=== PATIENT | female | born 1950 | race Asian ===

== ENCOUNTER 2016-10-24 12:15 | Inpatient (IN) | payer MEDICAID, MEDICARE ==
[~2016-10-24] VITALS: Ht 139.7 cm; Wt 49.0 kg
[~2016-10-24 12:15] MED LIST: ALEN70SO PO; AMLO-27 PO; ASPI81CT33 PO; ATEN25TA2 PO; CALC-1044 PO; CIPR500T4 PO; ISOS30TA PO; LOVA10TA27 PO; TIMO5SOL OP
[2016-10-24 13:02] VITALS: BP 94/54
--- NOTE | 2016-10-24 13:29 | NUR ---
PATIENT PRESENTS TO ED WITH ALOC . PT STATES SHE WAS UNABLE TO SLEEP LAST NIGHT AND HAD TO FAST FOR BLOODDRAW THIS MORNING. C/O DIZZINESS AND VOMITED. DAUGHTER STATES SHE LOST CONSCIOUSNESS FOR APPROXIMATELY 5 MINUTES. DENIES N/V/D; SKIN IS PINK/WARM/DRY; AAOX4 WITH EVEN AND STEADY GAIT; LUNGS CLEAR BL; HR EVEN AND REGULAR; PT DENIES ANY FEVER, CP, SOB, OR COUGH AT THIS TIME; PATIENT STATES PAIN OF 0/10 AT THIS TIME; VSS; PATIENT POSITIONED FOR COMFORT; HOB ELEVATED; BEDRAILS UP X2; BED DOWN. ER MD MADE AWARE OF PT STATUS.
--- NOTE | 2016-10-24 13:42 | NUR ---
DR. MERRITT PRESENT AT BEDSIDE.
[2016-10-24] MEDS ORDERED: NACL 0.9% 1,000 ML IV ONE ×2 (13:45→15:30)
[2016-10-24 14:24] LABS: BASOPHILS # (AUTO) 0.1 K/uL (0.00-0.22); BASOPHILS % (AUTO) 1.5 % (0.0-2.0); EOSINOPHILS # (AUTO) 0.3 K/uL (0-0.4); HEMATOCRIT 37.3 % (36-48); HEMOGLOBIN 12.4 g/dL (12.0-16.0); LYMPHOCYTES # (AUTO) 1.7 K/uL (2.5-16.5); LYMPHOCYTES % (AUTO) 20.1 % (20.5-51.1); MEAN CORPUSCULAR HEMOGLOBIN 31 pg (27-31); MEAN CORPUSCULAR HGB CONC 33 g/dL (33-37); MEAN CORPUSCULAR VOLUME 92 fL (80-94); MONOCYTES # (AUTO) 0.4 K/uL (0.8-1.0); MONOCYTES % (AUTO) 4.5 % (1.7-9.3); NEUTROPHILS # (AUTO) 6.1 K/uL (1.8-7.7); NEUTROPHILS % (AUTO) 70.9 % (42.2-75.2); PLATELET COUNT (AUTO) 233 K/uL (140-450); RED BLOOD CELL COUNT(AUTO) 4.05 MIL/uL (4.20-5.40); RED CELL DISTRIBUTION WIDTH 12.2 % (11.6-13.7); WHITE BLOOD COUNT (AUTO) 8.6 K/uL (4.8-10.8)
--- NOTE | 2016-10-24 14:34 | NUR ---
PT TO CT.
[2016-10-24 14:40] LABS: ANION GAP 11.5 (8-16); CALCIUM 8.8 mg/dL (8.5-10.1); CARBON DIOXIDE 28.3 mmol/L (21-32); CREATININE 0.7 mg/dL (0.6-1.3)
[2016-10-24 14:44] LABS: POTASSIUM 3.8 mmol/L (3.5-5.1)
[2016-10-24 14:45] LABS: ALBUMIN 3.8 g/dL (3.4-5.0); TOTAL BILIRUBIN 0.4 mg/dL (0.0-1.0); TOTAL PROTEIN, SERUM 8.2 g/dL (6.4-8.2)
--- NOTE | 2016-10-24 14:45 | NUR ---
PT BACK FROM CT. PT IN BED AND PLACED BACK ON MONITOR. DAUGHTER PRESENT AT BEDSIDE.
[2016-10-24 14:47] LABS: INR 1.1 (0.8-1.2); PARTIAL THROMBOPLASTIN TIME 21.2 secs (22-35.6)
[2016-10-24 14:51] LABS: MAGNESIUM 2.2 mg/dL (1.8-2.4)
[2016-10-24] MEDS ORDERED: MORPHINE SULFATE 2 MG/ML SYR IVP PRN (15:30)
[2016-10-24] MEDS ORDERED: DOCUSATE SODIUM 100 MG GELCAP PO PRN (15:30)
[2016-10-24] MEDS ORDERED: ONDANSETRON 4 MG/2 ML VIAL IVP PRN (15:30)
[2016-10-24] MEDS ORDERED: HYDROcodone/APAP 5/325 MG 1 TAB TAB PO PRN (15:30)
[2016-10-24] MEDS ORDERED: ACETAMINOPHEN 325 MG TAB PO PRN (15:30)
[2016-10-24] MEDS ORDERED: MECLIZINE 25 MG TAB PO PRN (15:35)
--- NOTE | 2016-10-24 15:37 | NUR ---
DR. MERRITT PRESENT AT BEDSIDE.
--- NOTE | 2016-10-24 16:02 | NUR ---
ULTRASOUND TECHS PRESENT AT PT BEDSIDE.
--- NOTE | 2016-10-24 16:13 | NUR ---
DR. RAMIREZ PRESENT AT BEDSIDE SPEAKING WITH PT'S DAUGHTER.
[2016-10-24] MEDS ORDERED: ASPIRIN 81 MG TAB.CHEW PO SCH (16:14)
--- NOTE | 2016-10-24 16:20 | NUR ---
RECEIVED REPORT FROM AROLDO PHAN NURSE. JUST FINISHED UP CAROTID US. WILL BE COMING UP IN ABOUT 30 MIN. WILL GET ROOM READY.
--- NOTE | 2016-10-24 16:21 | NUR ---
HANDOFF REPORT GIVEN TO LETICIA SOMMER. PT IS TO BE TRANSFERRED TO [facility]B Addendum: 10/24/16 at 1709 by [email or web address] CORRECTION: PT WILL BE TRANSFERRED TO [facility]B.
[2016-10-24 17:00] LABS: BILIRUBIN,DIRECT 0.1 mg/dL (0.0-0.3); TOTAL BILIRUBIN 0.3 mg/dL (0.0-1.0)
--- NOTE | 2016-10-24 17:00 | NUR ---
PT ARRIVED ON UNIT WITH ER NURSE AND 2 GAS ENGINE PERFORMANCE ENGINEER. WE ASSIST PT FROM ONE GURNEY TO ANOTHER. PT IS ALERT AND ORIENTED AND AMBULATORY. NOTED PT WITH NC O2 2L, IV ON R HAND 22G. FLUIDS ALMOST DONE. WILL HANG ANOTHER. PT IS WITH HER DAUGHTER, EMMA. SHE DID THE TRANSLATING. PT IS RELATIVELY HEALTHY 66 Y/O ETHIOPIAN FEMALE. WAS HAVING BREAKFAST WITH HER FAMILY AT [facility] [employer]. C/O FEELING TIRED AND FAINTED. SHE DID NOT HAVE A FALL, SON IN LAW WAS THERE TO ASSIST. PT IS FINE NOW. NO SIGNS OF DISTRESS. NO COMPLAINTS OF RICHTER, DIZZINESS, LIGHT HEADEDNESS. NO PAIN. C/O OF BEING HUNGRY. SHE HADN'T EATEN ALL DAY. SKIN IS INTACT. PLACE A NEW ID BAND, FALL RISK BAND, AND AN ALLERGY BAND. SHE STATES SHE IS ALLERGIC TO MORPHINE. MAKES HER CRAZY AND "LOOPY". WILL CONTINUE TO MONITOR PT.
[2016-10-24 17:01] LABS: ALBUMIN 3.9 g/dL (3.4-5.0)
--- NOTE | 2016-10-24 17:09 | NUR ---
PT TRANSFERRED TO [facility] 121B WITH NO ISSUES. DAUGHTER PRESENT AT BEDSIDE.
[2016-10-24 17:20] LABS: MAGNESIUM 2.2 mg/dL (1.8-2.4)
[2016-10-24 17:35] LABS: CHOL/HDL RATIO 5.1 (1-4.5)
[2016-10-24] MEDS ORDERED: AZELASTINE 0.05% BOTH EYES (17:55)
[2016-10-24 18:03] VITALS: BP 108/57
--- NOTE | 2016-10-24 18:30 | NUR ---
DAUGHTER DECIDED TO GO HOME. PT ATE DINNER AND IS COMFORTABLE FOR THE NIGHT. WILL BE BACK TOMORROW, MILL TURNER PER DAUGHTER. ADMINISTERED NEW NS. PT HAS NO COMPLAINTS. NO SIGNS OF DISTRESS. WILL CONTINUE TO MONITOR PT.
[2016-10-24 19:02] LABS: FREE T4 (FREE THYROXINE) 1.05 ng/dL (0.76-1.46); THYROID STIMULATING HORMONE 1.18 uIU/mL (0.34-3.76)
--- NOTE | 2016-10-24 19:15 | NUR ---
ENDORSED PT TO THE REEL ASSEMBLER NURSE AT BEDSIDE FOR CONTINUITY OF CARE. PT IS IN STABLE CONDITION. PT IS RESTING COMFORTABLY.
--- NOTE | 2016-10-24 19:30 | NUR ---
RECEIVED REPORT FROM DAY RN AT BEDSIDE, PATIENT IS IN STABLE CONDITION RESTING IN BED ON ROOM AIR. ASSISTED PATIENT UP TO RESTROOM. NO SOB OR SIGN OF DISTRESS AT THIS TIME. AAOX4. PATIENT HAS IV TO RIGHT HAND PATENT AND INTACT. SKIN INTACT, PATIENT DENIES PAIN OR DIZZINESS. SCDS ON, DISCUSSED PLAN OF CARE WITH PATIENT, PATIENT VERBALIZED UNDERSTANDING, SAFETY MEASURES CHECKED, CALL LIGHT WITHIN REACH. WILL CONTINUE TO MONITOR. FAMILY AT BEDSIDE.
[2016-10-24 20:00] VITALS: BP 122/68
[2016-10-24] MEDS: ATENOLOL 25 MG TAB PO SCH (20:44)
[2016-10-24] MEDS: ATORVASTATIN 20 MG TAB PO SCH (20:44)
[2016-10-24] MEDS: TIMOLOL OP 0.5% 5 ML BTL OP SCH (20:47)
--- NOTE | 2016-10-24 20:48 | NUR ---
PM MEDS ADMINISTERED, PATIENT TOLERATED WELL, CALL LIGHT WITHIN REACH. WILL CONTINUE TO MONITOR.
--- NOTE | 2016-10-24 22:30 | NUR ---
PATIENT SLEEPING, NO SOB OR SIGN OF DISTRESS, CALL LIGHT WITHIN REACH. WILL CONTINUE TO MONITOR
[2016-10-24 23:04] LABS: APPEARANCE,URINE CLEAR (CLEAR); BILIRUBIN,URINE NEGATIVE (NEGATIVE); BLOOD, URINE TRACE-L (NEGATIVE); COLOR,URINE YELLOW (YELLOW); LEUKOCYTE ESTERASE ,URINE NEGATIVE (NEGATIVE); NITRITE, URINE NEGATIVE (NEGATIVE); PROTEIN,URINE NEGATIVE (NEGATIVE); UGLUCOSE NEGATIVE (NEGATIVE); UROBILINOGEN,URINE 0.2 EU/dL (0.2 - 1)
[2016-10-24 23:21] LABS: BACTERIA,URINE RARE /HPF (None Seen); RBC,URINE 0-3 /HPF (0-5); SQUAMOUS EPITHELIAL CELL,UR 0-3 /LPF (0-3 (FEW)); WBC,URINE 0-3 /HPF (0-5)
[2016-10-24 23:32] LABS: AMPHETAMINE, URINE NEG. ng/ml (NEG <=1000); BARBITURATE, URINE NEG. ng/ml (NEG <=200); BENZODIAZEPINE, URINE NEG. ng/mL (NEG <=200); CANNABINOID, URINE NEG. ng/mL (NEG <=50); COCAINE, URINE NEG. ng/mL (NEG <=300); OPIATE, URINE NEG. ng/mL (NEG <=2000); PHENCYCLIDINE SCREEN,URINE NEG. ng/mL (NEG <=25)
[2016-10-25] VITALS: BP 108/59
--- NOTE | 2016-10-25 | NUR ---
VITAL SIGNS STABLE, NO SOB OR SIGN OF DISTRESS AT THIS TIME, PATIENT RESTING IN BED, CALL LIGHT WITHIN REACH. WILL CONTINUE TO MONITOR.
--- NOTE | 2016-10-25 01:32 | NUR ---
PATIENT SLEEPING COMFORTABLE IN BED, NO SOB OR SIGN OF DISTRESS AT THIS TIME, CALL LIGHT WITHIN REACH. WILL CONTINUE TO MONITOR.
--- NOTE | 2016-10-25 02:15 | NUR ---
PATIENT SLEEPING, NO SOB OR SIGN OF DISTRESS AT THIS TIME, CALL LIGHT WITHIN REACH, WILL CONTINUE TO MONITOR.
[2016-10-25 04:00] VITALS: BP 100/57
--- NOTE | 2016-10-25 04:08 | NUR ---
VITAL SIGNS STABLE, NO SOB OR SIGN OF DISTRESS, CALL LIGHT WITHIN REACH. WILL CONTINUE TO MONITOR.
[2016-10-25] MEDS: PANTOPRAZOLE 40 MG TABEC PO SCH (05:34)
[2016-10-25 06:12] LABS: BASOPHILS % (AUTO) 0.6 % (0.0-2.0); EOSINOPHILS # (AUTO) 0.3 K/uL (0-0.4); EOSINOPHILS % (AUTO) 4.7 % (0.0-4.0); HEMATOCRIT 35.3 % (36-48); HEMOGLOBIN 11.9 g/dL (12.0-16.0); LYMPHOCYTES # (AUTO) 2.1 K/uL (2.5-16.5); LYMPHOCYTES % (AUTO) 31.3 % (20.5-51.1); MEAN CORPUSCULAR HEMOGLOBIN 31 pg (27-31); MEAN CORPUSCULAR HGB CONC 34 g/dL (33-37); MEAN CORPUSCULAR VOLUME 92 fL (80-94); MONOCYTES # (AUTO) 0.4 K/uL (0.8-1.0); MONOCYTES % (AUTO) 6.7 % (1.7-9.3); NEUTROPHILS # (AUTO) 3.9 K/uL (1.8-7.7); NEUTROPHILS % (AUTO) 56.7 % (42.2-75.2); PLATELET COUNT (AUTO) 247 K/uL (140-450); RED BLOOD CELL COUNT(AUTO) 3.85 MIL/uL (4.20-5.40); RED CELL DISTRIBUTION WIDTH 11.9 % (11.6-13.7); WHITE BLOOD COUNT (AUTO) 6.7 K/uL (4.8-10.8)
[2016-10-25 06:33] LABS: ANION GAP 11.5 (8-16); CALCIUM 8.2 mg/dL (8.5-10.1); CARBON DIOXIDE 27.9 mmol/L (21-32); CREATININE 0.6 mg/dL (0.6-1.3); POTASSIUM 3.4 mmol/L (3.5-5.1)
[2016-10-25 06:44] LABS: MAGNESIUM 1.9 mg/dL (1.8-2.4); PHOSPHORUS 3.5 mg/dL (2.5-4.9)
--- NOTE | 2016-10-25 07:22 | NUR ---
ENDORSED PATIENT TO DAY RN AT BEDSIDE, PATIENT IN STABLE CONDITION.
--- NOTE | 2016-10-25 07:23 | NUR ---
RECEIVED REPORT FROM NIGHT RN. PT SEEN AT BEDSIDE WITH DAUGHTER. PT IS AAOX4 ON ROOM AIR WITH NO S/S DISTRESS OR SOB AT THIS TIME. PT HAS IV ON RIGHT HAND 22G RUNNING IVF AT THIS TIME. NO S/S COMPLICATIONS FROM IV AT THIS TIME. PT IS AMBULATORY. SKIN IS WARM, DRY, AND INTACT. NO C/O PAIN AT THIS TIME. SAFETY MEASURES CHECKED, CALL LIGHT LEFT AT BEDSIDE. WILL CONTINUE TO MONITOR.
[2016-10-25 08:00] VITALS: BP 102/53
--- NOTE | 2016-10-25 08:07 | NUR ---
PATIENT HAS BEEN SCREENED AND CATEGORIZED MODERATE NUTRITION RISK. PATIENT WILL BE SEEN WITHIN 3-5 DAYS OF ADMISSION. 10/27/16-10/29/[address]
[2016-10-25] MEDS ORDERED: POTASSIUM CHLORIDE 10 MEQ TABER PO SCH (08:30)
--- NOTE | 2016-10-25 08:39 | NUR ---
DR. XAVIER AT BEDSIDE ASSESSING AND TALKING TO PATIENT. UPDATED MD ON PATIENT CONDITION. WILL CONTINUE TO MONITOR.
[2016-10-25] MEDS: TIMOLOL OP 0.5% 5 ML BTL OP SCH ×2 (08:45→21:25)
[2016-10-25] MEDS: ASPIRIN 81 MG TAB.CHEW PO SCH (08:45)
[2016-10-25] MEDS: CALCIUM CARB/VIT-D 500 MG/200 IU 1 TAB PO SCH ×2 (08:45→21:24)
[2016-10-25] MEDS ORDERED: CALCIUM CARB/VIT-D 500 MG/200 IU 1 TAB PO SCH (09:00)
[2016-10-25] MEDS: amLODIPine 5 MG TAB PO SCH (09:00)
--- NOTE | 2016-10-25 10:00 | NUR ---
PT REQUESTING FOR BLANKET. BLANKET OFFERED.
--- NOTE | 2016-10-25 11:38 | NUR ---
CM NOTE SPOKE WITH TIM Newsle [facility] PH# [phone] AND SHE SAID REVIEWS SHOULD GO TO [facility]. SPOKE WITH RAFAEL OF [facility] PH# [phone] EXT [phone] WHO SAID THAT REVIEWS SHOULD GO TO [facility]. SENT INITIAL REVIEW TO [facility] FAX# [phone] PH# [phone] [facility] EXT [phone]
[2016-10-25 12:00] VITALS: BP 95/52
--- NOTE | 2016-10-25 12:00 | NUR ---
PT EATING LUNCH. NO S/S DISTRESS OR SOB. WILL CONTINUE TO MONITOR.
[2016-10-25 16:00] VITALS: BP 123/62
--- NOTE | 2016-10-25 16:00 | NUR ---
PT AT BEDSIDE TALKING ON THE PHONE. NO S/S DISTRESS OR SOB. PT STATES SHE DOES NOT NEED AT THIS TIME. WILL CONTINUE TO MONITOR.
--- NOTE | 2016-10-25 19:25 | NUR ---
RECEIVED REPORT FROM LETICIA SIMMS. INITIAL ASSESSMENT COMPLETED. PT AAOX4. PT'S SKIN IS INTACT. PT HAS IV TO RIGHT HAND G 22; ASYMPTOMATIC, PATENT AND INTACT. ORIENTED PT AND DAUGHTER EMMA TO ROOM AND SURROUNDINGS AND USE OF CALL LIGHT. EXPLAINED PLAN OF CARE TO PT AND DAUGHTER AND THEY VERBALIZE UNDERSTANDING. PT HAS SCDS ON. SAFETY/FALL RISK PRECAUTIONS IN PLACE. WILL CONTINUE TO MONITOR PT.
--- NOTE | 2016-10-25 19:30 | NUR ---
REPORT GIVEN TO NIGHT RN.
[2016-10-25 20:00] VITALS: BP 128/76
[2016-10-25] MEDS: ATORVASTATIN 20 MG TAB PO SCH (21:23)
[2016-10-25] MEDS: ATENOLOL 25 MG TAB PO SCH (21:24)
--- NOTE | 2016-10-25 21:28 | NUR ---
PT TOLERATED 2100 MEDS WELL. DAUGHTER AT BEDSIDE. CALL LIGHT WITHIN REACH.
--- NOTE | 2016-10-25 23:25 | NUR ---
PT USING HER PHONE, NO SIGNS OF DISTRESS NOTED. WILL CONTINUE TO MONITOR PT.
[2016-10-26] VITALS: BP 132/78
--- NOTE | 2016-10-26 01:11 | NUR ---
PT SLEEPING AT THIS TIME, NO SIGNS OF DISTRESS NOTED, CALL LIGHT WITHIN REACH.
--- NOTE | 2016-10-26 03:20 | NUR ---
CHECKED PT'S VS. VS STABLE, WILL CONTINUE TO MONITOR PT.
[2016-10-26 04:00] VITALS: BP 108/51
--- NOTE | 2016-10-26 04:30 | NUR ---
PLASTERER FOREMAN AT BEDSIDE DRAWING MORNING LABS.
[2016-10-26 06:24] LABS: BASOPHILS # (AUTO) 0.1 K/uL (0.00-0.22); BASOPHILS % (AUTO) 0.8 % (0.0-2.0); EOSINOPHILS # (AUTO) 0.3 K/uL (0-0.4); EOSINOPHILS % (AUTO) 4.4 % (0.0-4.0); HEMATOCRIT 36.5 % (36-48); HEMOGLOBIN 12.5 g/dL (12.0-16.0); LYMPHOCYTES # (AUTO) 2.4 K/uL (2.5-16.5); LYMPHOCYTES % (AUTO) 36.3 % (20.5-51.1); MEAN CORPUSCULAR HEMOGLOBIN 31 pg (27-31); MEAN CORPUSCULAR HGB CONC 34 g/dL (33-37); MEAN CORPUSCULAR VOLUME 91 fL (80-94); MONOCYTES # (AUTO) 0.5 K/uL (0.8-1.0); MONOCYTES % (AUTO) 7.3 % (1.7-9.3); NEUTROPHILS # (AUTO) 3.2 K/uL (1.8-7.7); NEUTROPHILS % (AUTO) 51.2 % (42.2-75.2); PLATELET COUNT (AUTO) 233 K/uL (140-450); RED BLOOD CELL COUNT(AUTO) 3.99 MIL/uL (4.20-5.40); RED CELL DISTRIBUTION WIDTH 11.8 % (11.6-13.7); WHITE BLOOD COUNT (AUTO) 6.5 K/uL (4.8-10.8)
--- NOTE | 2016-10-26 06:30 | NUR ---
PT AMBULATING TO THE RESTROOM WITH STEADY GAIT. WILL CONTINUE TO MONITOR PT.
[2016-10-26] MEDS: PANTOPRAZOLE 40 MG TABEC PO SCH (06:33)
--- NOTE | 2016-10-26 06:52 | NUR ---
[place] IN TO VISIT PT. CALL LIGHT WITHIN REACH.
[2016-10-26 06:53] LABS: ANION GAP 11.7 (8-16); CALCIUM 8.5 mg/dL (8.5-10.1); CARBON DIOXIDE 26.9 mmol/L (21-32); CREATININE 0.6 mg/dL (0.6-1.3); POTASSIUM 3.6 mmol/L (3.5-5.1)
[2016-10-26 07:03] LABS: MAGNESIUM 2.2 mg/dL (1.8-2.4); PHOSPHORUS 3.7 mg/dL (2.5-4.9)
--- NOTE | 2016-10-26 07:30 | NUR ---
ENDORSED PLAN OF CARE TO LETICIA HERMAN PT IN STABLE CONDITION.
[2016-10-26 08:00] VITALS: BP 111/61
--- NOTE | 2016-10-26 08:00 | NUR ---
RECEIVED REPORT FROM MARK CHARGE NURSE FOR CONTINUITY OF CARE. PATIENT AWAKE A/OX4 NO S/S OF RESP DISTRESS NOTED , SON AT THE BED SIDE HELPING WITH THE NEEDS. ABLE TO MAKE NEEDS KNOWN. DENIES ANY PAIN. IV SITE RT HAND GAUGE 22 INTACT AND PATENT. PLAN OF CARE DISCUSSED WITH THE PATIENT VITALS STABLE WILL CONTINUE TO MONITOR.
--- NOTE | 2016-10-26 09:30 | NUR ---
DUE MEDS GIVEN TOLERATED WELL . AMBULATE TO BATHROOM SAFETY ENFORCED , ASSIST PATIENT WITH MORNING CARE TOLERATED WELL .
[2016-10-26] MEDS: ASPIRIN 81 MG TAB.CHEW PO SCH (09:53)
[2016-10-26] MEDS: amLODIPine 5 MG TAB PO SCH (09:54)
[2016-10-26] MEDS: CALCIUM CARB/VIT-D 500 MG/200 IU 1 TAB PO SCH (09:54)
[2016-10-26] MEDS: TIMOLOL OP 0.5% 5 ML BTL OP SCH (09:55)
--- NOTE | 2016-10-26 11:16 | NUR ---
CM NOTE CONCURRENT REVIEW SENT TO [facility] FAX3 PH# [phone]
[2016-10-26 12:00] VITALS: BP 116/77
--- NOTE | 2016-10-26 12:06 | NUR ---
PATIENT HAS DISCHARGE ORDER , DAUGHTER AT THE BED SIDE AGREED TO BE DISCHARGED, DENIES ANY PAIN ,STABLE CONDITION.
[2016-10-26] MEDS ORDERED: PNEUMOCOCCAL VACCINE 23 MCG/0.5 ML VIAL IMVAC SCH (12:35)
--- NOTE | 2016-10-26 13:23 | NUR ---
DISCHARGE INSTRUCTION GIVEN TO PATIENT AND DAUGHTER VERBALIZED UNDERSTANDING FOR FOLLOW UP WITH PRIMARY DR , ALL PAPER WORK SIGNED BY THE PATIENT , VITALS STABLE DENIES ANY PAIN , D/C PATIENT HOME ACCOMPANY WITH HER DAUGHTER ,STABLE CONDITION UPON DISCHARGE.
== END 2016-10-26 13:28 | disposition home or self-care (01) | DRG 48 ==
LOC: MED 12:15 → MTU 16:10
PROVIDERS: ADMIT Family Medicine; ATTEND Family Medicine
DX: G90.9 Disorder of the autonomic nervous system, unspecified (principal); N17.0 Acute kidney failure with tubular necrosis; I95.9 Hypotension, unspecified; E83.51 Hypocalcemia; R55 Syncope and collapse; E78.1 Pure hyperglyceridemia; R73.03 Prediabetes; I10 Essential (primary) hypertension; E78.00 Pure hypercholesterolemia, unspecified; R00.1 Bradycardia, unspecified; H40.9 Unspecified glaucoma; E87.6 Hypokalemia; M54.5 Low back pain; G89.29 Other chronic pain; E78.5 Hyperlipidemia, unspecified; H10.10 Acute atopic conjunctivitis, unspecified eye; Z88.6 Allergy status to analgesic agent; Z79.899 Other long term (current) drug therapy; Z79.82 Long term (current) use of aspirin
CPT/HCPCS: 36415; 70450; 71010; 80048; 80053; 80076; 80305; 81001; 82140; 82150; 83036; 83690; 83735; 83880; 84100; 84439; 84443; 84484; 85025; 85610; 85730; 87081; 87086; 90732; 93005; 93880; 99291; J7030; Q0092